=== PATIENT | male | born 1960 | race Hispanic/Latino ===

== ENCOUNTER → 2025-03-24 | Outpatient (CLI) | payer OTHER ==
--- NOTE | 2025-03-25 09:09 | HMCSR ---
APPROVED REPORT EXAM: Two-dimensional and M-mode echocardiogram with Doppler and color Doppler. INDICATION ICD: I10.0 Essential (primary) Hypertension 2D Dimensions RVDd3.5 cmLVOT diam2.2 (1.8-2.4cm)LVED Vol(simp.)108.0 mL IVC diam1.4 cmLVES Vol(simp.)44.0 mL LVEF(%, simp.)60 % LA ESV INDEX (BP)25.80 mL/m2 M-Mode Dimensions EPSS0.8 cm LA (MM)4.6 (1.6-4.0cm) Ao Root(MM)2.8 (2.0-3.7cm) Aortic Valve AoV Vmax1.6 m/[place] Peak GR10.4 mmHgLVOT Vmax1.4 m/s AoV VTI0.3 mAo Mean GR5.0 mmHgLVOT VTI0.24 m ROGER (VMAX)3.54 cm2AVA (VTI) 3.5 cm2 Mitral Valve MV E Vmax75.2 cm/sDECEL Tdha218 ms MV A Vmax73.8 cm/sP 1/2 T48 ms E/A ratio1.0MVA (PHT)4.6 cm2 TDI E/E' Medial9.2E/E' Lateral6.2 Medial E' Peak V8.14 cm/sLateral E' Peak V12.18 cm/s Tricuspid Valve TR Vmax1.3 m/sRAP (EST) 3 mmHgRVSP9.4 mmHg TR Peak GR6.4 mmHg Left Ventricle The left ventricle is normal size. There is normal left ventricular wall thickness. LVEF is 60-65%. T he left ventricular diastolic function is normal. Right Ventricle The right ventricle is normal size. The right ventricular systolic function is normal. Atria The left atrium size is normal. The right atrium size is normal. Aortic Valve The aortic valve is normal in structure. No aortic regurgitation is present. There is no aortic valvu lar stenosis. Mitral Valve The mitral valve is normal in structure. There is no mitral valve regurgitation noted. There is no mi tral valve stenosis. Tricuspid Valve The tricuspid valve is normal in structure. There is no tricuspid valve regurgitation noted. Pulmonic Valve Pulmonic valve is not well visualized. There is no pulmonic valvular regurgitation. Great Vessels The aortic root is normal in size. The IVC is normal in size and collapses >50% with inspiration. Pericardium There is no pericardial effusion. Other Information Quality : Technically difficult due to body habitus Conclusion The left ventricle is normal size. LVEF is 60-65%. The left ventricular diastolic function is normal. The right ventricle is normal size. The right ventricular systolic function is normal. The left atrium size is normal. The right atrium size is normal. No valvular pathology. There is no pericardial effusion.
== END | disposition home or self-care (01) ==
LOC: RAH 15:17
PROVIDERS: ATTEND Internal Medicine
DX: I10 Essential (primary) hypertension (principal)
CPT/HCPCS: 93306